=== PATIENT | male | born 1995 | race Asian ===

== ENCOUNTER 2019-06-26 15:24 | Inpatient (IN) | payer OTHER ==
[~2019-06-26] VITALS: Ht 182.9 cm; Wt 79.4 kg
[2019-06-26 15:41] VITALS: Ht 182.9 cm; Wt 79.4 kg
[2019-06-26 16:08] LABS: microscopic required? NO
[2019-06-26 16:15] LABS: BASOPHIL % 0.6 % (0-2); PLATELET COUNT 194 x10^3mcL (130-400)
[2019-06-26 16:15] LABS: urine erythrocyte NEGATIVE (NEGATIVE)
[2019-06-26 17:19] LABS: CALCIUM 8.7 mg/dL (8.5-10.1); CARBON DIOXIDE 29.6 mmol/L (21-32); CHLORIDE SERUM 103 mmol/L (98-107); CREATININE SERUM 1.2 mg/dL (0.7-1.3); GFR1 > 60 mL/min; GLUCOSE SERUM 87 mg/dL (74-106); POTASSIUM SERUM 4.2 mmol/L (3.5-5.1); SODIUM SERUM 139 mmol/L (136-145)
[2019-06-26 17:26] LABS: ALBUMIN 3.7 g/dL (3.4-5.0); ALKALINE PHOSPHATASE 41 U/L (46-116); ALT/SGPT 14 U/L (16-63); AST/SGOT 11 U/L (15-37); BILIRUBIN TOTAL 0.92 mg/dL (0.20-1.00); LIPASE 204 IU/L (73-393); TOTAL PROTEIN, SERUM 7.2 g/dL (6.4-8.2)
[2019-06-26 17:57] LABS: AMPHETAMINE QUAL UR NONE DETECTED (See below)
[2019-06-26 17:58] LABS: CHOLESTEROL/HDL RATIO 2.3
[2019-06-26 19:16] VITALS: BP 117/77
[2019-06-26 20:13] VITALS: BP 120/72
[2019-06-26 22:43] VITALS: BP 126/73
[2019-06-27 06:10] LABS: BASOPHIL % 0 % (0-2); PLATELET COUNT 192 x10^3mcL (130-400); RED CELL DISTRIBUTION WIDTH 12.6 % (11.5-14.5)
[2019-06-27 06:38] LABS: CALCIUM 8.6 mg/dL (8.5-10.1); CARBON DIOXIDE 26.7 mmol/L (21-32); CHLORIDE SERUM 102 mmol/L (98-107); CREATININE SERUM 1.1 mg/dL (0.7-1.3); GFR1 > 60 mL/min; GLUCOSE SERUM 131 mg/dL (74-106); PHOSPHOROUS 3.8 mg/dL (2.5-4.9); POTASSIUM SERUM 4.3 mmol/L (3.5-5.1); SODIUM SERUM 137 mmol/L (136-145)
[2019-06-27 06:58] VITALS: BP 118/69
[2019-06-27 08:26] VITALS: BP 124/67
[2019-06-27] MEDS ORDERED: PROBIOTIC1 EACH PO ×2 (12:39→12:52)
[2019-06-27] MEDS ORDERED: AUGMENTIN1 TA1 PO ×2 (12:39→12:52)
[2019-06-27 12:53] VITALS: BP 124/67
== END 2019-06-27 13:45 | disposition home or self-care (01) | DRG 343 ==
LOC: ED 15:24 → MU 17:31
PROVIDERS: Emergency Medicine; Surgery; ADMIT Family Medicine
PROC: 0DTJ4ZZ Resection of Appendix, Percutaneous Endoscopic Approach (ICD-10-PCS; principal; 2019-06-26 20:30)
DX: K35.30 Acute appendicitis with localized peritonitis, without perforation or gangrene (principal)
CPT/HCPCS: G0378; J0694; J0696; J2270; J2405; J2543; J3010; J3490; J7030; J7060; Q0092

== ENCOUNTER 2019-06-29 08:05 | Emergency (ER) | payer OTHER ==
[~2019-06-29] VITALS: Ht 182.9 cm; Wt 78.9 kg
[~2019-06-29 08:05] MED LIST: AUGMENTIN1 TA1 PO; PROBIOTIC1 EACH PO
[2019-06-29 08:14] VITALS: Ht 182.9 cm; Wt 78.9 kg
[2019-06-29 08:40] VITALS: BP 134/78
== END 2019-06-29 08:40 | disposition home or self-care (01) ==
LOC: ED 08:05
DX: L50.0 Allergic urticaria (principal); T36.0X5A Adverse effect of penicillins, initial encounter; T39.1X5A Adverse effect of 4-Aminophenol derivatives, initial encounter; T36.1X5A Adverse effect of cephalosporins and other beta-lactam antibiotics, initial encounter; Y92.89 Other specified places as the place of occurrence of the external cause